=== PATIENT | male | born 1955 | race Caucasian/White ===

== ENCOUNTER 2016-09-06 08:37 | Inpatient (IN) | payer BC, MEDICARE ==
[2016-09-01 21:26] LABS: BASOPHILS 0.8 %; BASOPHILS ABSOLUTE 0.04 10/3/uL (0.0-0.16); EOSINOPHILS 4.7 %; EOSINOPHILS ABSOLUTE 0.25 10/3/uL (0.0-0.53); IMMATURE GRANULOCYTES 0.6 %; IMMATURE GRANULOCYTES ABSOLUTE 0.03 10/3/uL (0.0-0.11); LYMPHOCYTES 40.5 %; LYMPHOCYTES ABSOLUTE 2.14 10/3/uL (0.67-4.30); MEAN CORPUS HGB CONC 32.3 g/dL (32.0-36.0); MEAN CORPUSCULAR HEMOGLOB 30.2 pg (26.0-34.0); MEAN PLATELET VOLUME 9.4 fL (9.2-13.0); MONOCYTES 5.3 %; MONOCYTES ABSOLUTE 0.28 10/3/uL (0.21-1.20); NEUTROPHILS 48.1 %; NEUTROPHILS ABSOLUTE 2.55 10/3/uL (2.02-8.40); PLATELET COUNT 246 10/3/uL (150-400); WHITE BLOOD CELLS 5.3 10/3/uL (4.5-10.5)
[2016-09-01 21:27] LABS: HEMOGLOBIN 14.2 g/dL (13.6-17.8); MANUAL DIFF NO %; MEAN CORPUSCULAR VOLUME 93.6 fL (80-100); RBC DISTRIBUTION WIDTH 13.5 % (12.0-16.0)
[2016-09-01 21:38] LABS: BUN (BLOOD UREA NITROGEN) 9 MG/DL (6-23); CALCIUM, SERUM 8.6 MG/DL (8.5-10.4); CHLORIDE, SERUM 100 MMOL/L (96-112); CO2 (CARBON DIOXIDE) 25 MMOL/L (24-34); CREATININE 0.87 MG/DL (0.70-1.30); GFR AFRICAN AMERICAN 108 ML/MIN (>=60); GFR NON AFRICAN AMERICAN 93 ML/MIN (>=60); GLUCOSE, SERUM 271 MG/DL (60-99); POTASSIUM, SERUM 4.2 MMOL/L (3.5-5.3); SODIUM, SERUM 135 MMOL/L (135-148)
--- NOTE | ~2016-09-06 | OP ---
Record Of Operation [facility] [address] [place]. [address] NAME: BRENTON CASTELLANO ELIZABETH : 55 STATUS : DIS IN PAT#: [id number] AGE: 61 ADM/REG DATE : 09/06/16 MR#: [id number] REPORT SERV DATE: 09/19/16 DICTATED BY: JEREMY ESPINOSA II DATE: 09/19/16 REPORT STATUS : Draft TRANSCRIBED BY: MODL DATE: 09/19/16 DATE OF PROCEDURE: 09/08/2016 PREOPERATIVE DIAGNOSES: 1. Critical ischemia of the right leg with re-occluded right leg bypass. 2. Rest pain, right foot. POSTOPERATIVE DIAGNOSES: 1. Critical ischemia of the right leg with re-occluded right leg bypass. 2. Rest pain, right foot. PROCEDURES: 1. Angiogram of the right leg from a left femoral approach. 2. Percutaneous mechanical thrombectomy of right femoral popliteal artery bypass. 3. Percutaneous angioplasty of right common femoral artery. 4. Percutaneous stent placement of right common femoral artery. 5. Percutaneous stent placement of right popliteal artery. ANESTHESIA: Local with MAC. IV FLUIDS: 600 mL. ESTIMATED BLOOD LOSS: 50 mL. SPECIMENS: Thrombus. BRIEF HISTORY: Mr. Castellano is a pleasant 61-year-old gentleman, who has had a recent thrombectomy of his right leg bypass. He did well initially, but re-occluded the bypass. He was unable to be placed on anticoagulation secondary to history of GI bleed. He is recommended to undergo repeat angiogram and possible intervention. DETAILS OF PROCEDURE: He was taken to the operating room and placed on the operating room table in supine position. Both groins were prepped and draped. I used ultrasound to identify the common femoral on the left side, performed a puncture, and placed a 6-Tajik sheath. We passed a catheter into the right iliac, and a right leg angiogram was performed. This demonstrated a patent right external iliac artery. Just beyond this, the common femoral was completely occluded. The bypass was occluded. There was some reconstitution of the profunda. There was reconstitution of the popliteal below the anastomosis; however, there was what appeared to either be chronic dissection and/or thrombus. The tibials below this appeared to be patent. I was then able to pass a wire through the bypass down into the popliteal artery, and we performed a percutaneous thrombectomy of the bypass. We then performed a percutaneous thrombectomy of the bypass. We passed a wire down into the popliteal artery, then brought the AngioJet catheter into the field, and we passed the AngioJet catheter over the wire through the common femoral artery and into the bypass. We advanced the AngioJet catheter in the thrombectomy mode at approximately 1 cm/second. I passed the entire length of the bypass and down into the popliteal artery. We removed a Record Of Operation [facility] [address] [place]. [address] NAME: BRENTON CASTELLANO ELIZABETH : 55 STATUS : DIS IN PAT#: [id number] AGE: 61 ADM/REG DATE : 09/06/16 MR#: [id number] REPORT SERV DATE: 09/19/16 DICTATED BY: JEREMY ESPINOAS II DATE: 09/19/16 REPORT STATUS : Draft TRANSCRIBED BY: NICK DATE: 09/19/16 large amount of thrombus. It was discarded. Completion of angiogram demonstrated excellent result from thrombectomy within the bypass. There was no further thrombus seen. We had the reestablished flow within the bypass; although the flow was sluggish from the bypass, it was patent and no further thrombus could be seen within the bypass; however, there was a severe stenosis within the common femoral artery. This appeared either to be a dissection. There was a filling defect noted, this could be chronic thrombus. Despite, we then angioplastied this aggressively with a 7 mm balloon with no improvement, I then elected to proceed with stent placement. I advanced an 8 mm x 30 mm stent into the common femoral, and deployed the stent above the bypass. Completion angiogram demonstrated a good placement of the stent just above the profunda with improved flow noted into the bypass. We then focused our attention on the popliteal artery. The bypass again was patent. The distal anastomosis was patent; however, the flow within the bypass was sluggish. We performed an angiogram that demonstrated a diffusely diseased popliteal above the knee. It was difficult to tell if this was chronic thrombus and/or this was a dissection. There did appear to be at least one area of localized dissection. I elected to proceed with primary stent placement of this. I advanced a 6 mm stent into the popliteal artery and deployed the stent without difficulty through the anastomosis and into the bypass. Completion angiogram demonstrated an excellent result now with the excellent flow noted within the bypass through the stent and down into the tibial vessels with rapid flow demonstrated to the foot. At this point, we removed all the wires and catheters, and we closed percutaneously. At the end of the procedure, the patient was stable. He had tolerated it well. He was transported to the recovery room in good condition. CARLIE/NICK Jeremy Espinosa II, M.D. / [id number] CC: Albaro Samuel II
--- NOTE | ~2016-09-06 | CN ---
Consultation Report [address] [address] NAME: BRENTON CASTELLANO ELIZABETH : 55 STATUS : ADM IN PAT#: [id number] AGE: 61 ADM/REG DATE : 09/06/16 MR#: [id number] REPORT SERV DATE: 09/09/16 DICTATED BY: SAMPSON CONNOLLY DATE: 09/09/16 REPORT STATUS : Draft TRANSCRIBED BY: MODL DATE: 09/09/16 GI CONSULT DATE OF CONSULTATION: REASON FOR CONSULTATION: GI consult regarding gastric ulcerations and need for anticoagulation. HISTORY OF PRESENT ILLNESS: This is a 61-year-old man who was admitted and underwent open thrombectomy of right qkfhkir-lw-yyohsgmzp bypass as well as intraluminal angioplasty of right common femoral artery. He has had no recent melena or hematochezia. No diarrhea or constipation. No GERD or dysphagia. No abdominal pain. Overall, he feels well. However, he has a history of gastric ulcers on two separate examinations, in both 2014 and 2015, all biopsies were negative. Previous colonoscopy in 2015 was negative except diverticulosis and tubular adenomas removed. He states he has a history of bleeding from his gastric ulcer while on Coumadin in the past. He states that they are pondering further anticoagulation other than aspirin and Plavix. MEDICAL HISTORY: Remarkable for, 1. Gastric ulcer, antrum, biopsies benign. 2. CAD. 3. Hypertension. 4. Hyperlipidemia. 5. GERD. 6. Peripheral vascular disease, status post thrombectomy and angioplasty of right femoral artery. 7. Degenerative disk disease. 8. Laryngeal tumor. 9. Low back pain. 10.Peripheral neuropathy. 11.CABG. 12.Multiple back surgeries. SOCIAL HISTORY: He is . Has three children. He does not use alcohol or tobacco significantly. FAMILY HISTORY: Negative for GI malignancy. REVIEW OF SYSTEMS: A complete review of systems was obtained and negative except that noted in the history of present illness. PHYSICAL EXAMINATION: VITAL SIGNS: He is currently afebrile. Temperature is 98.4, pulse 95, respirations 16, Consultation Report [address] [address] NAME: BRENTON CASTELLANO ELIZABETH : 55 STATUS : ADM IN PAT#: [id number] AGE: 61 ADM/REG DATE : 09/06/16 MR#: [id number] REPORT SERV DATE: 09/09/16 DICTATED BY: SAMPSON CONNOLLY DATE: 09/09/16 REPORT STATUS : Draft TRANSCRIBED BY: MODL DATE: 09/09/16 blood pressure 114/68. EYES: Sclerae anicteric. NECK: Supple without lymphadenopathy. Pharynx is pink without exudate. LUNGS: Clear to auscultation bilaterally. HEART: Regular rate and rhythm. S1, S2 heard without rubs or gallops. ABDOMEN: Normal bowel sounds. Belly is soft, nontender, nondistended without hepatosplenomegaly. EXTREMITIES: No pedal edema or rash. NEUROLOGIC: Alert and oriented without focal deficit. MUSCULOSKELETAL: Muscle exam is nontender. DATA: White blood cell count 5.4, hematocrit 36, platelets 207. PTT normal, INR 1.2. IMPRESSION: 1. History of gastric ulcer, taking b.i.d. acid suppression. In need of anticoagulation. In need of risk stratification. 2. Peripheral vascular disease, status post recent intervention as above. RECOMMENDATIONS: 1. Continue Protonix twice daily. 2. EGD to follow for risk stratification of further anticoagulation. CC/NICK Sampson Connolly M.D. / [id number] CC: Albaro Samuel II, III, M.D.
--- NOTE | ~2016-09-06 | DS ---
Discharge Summary [facility] [address] [facility] [place]. [address] NAME: BRENTON CASTELLANO ELIZABETH : 55 STATUS : DIS IN PAT#: [id number] AGE: 61 ADM/REG DATE : 09/06/16 MR#: [id number] REPORT SERV DATE: 11/10/16 DICTATED BY: JEREMY ESPINOSA II DATE: 11/10/16 REPORT STATUS : Draft TRANSCRIBED BY: NICK DATE: 11/10/16 ADMISSION DATE: 09/06/2016 DISCHARGE DATE: 09/14/2016 ADMISSION DIAGNOSES: 1. Occluded right leg bypass with rest pain, right foot. 2. Hypertension. 3. Dxa-gztjywn-eqcpvjqzy diabetes. 4. Peripheral vascular disease. 5. Coronary artery disease. 6. Hypertension. DISCHARGE DIAGNOSES: 1. Occluded right leg bypass with rest pain, right foot. 2. Hypertension. 3. Nwh-iscrzrn-fghsniqjs diabetes. 4. Peripheral vascular disease. 5. Coronary artery disease. 6. Hypertension. PROCEDURES WHILE IN THE HOSPITAL: 1. Open thrombectomy of right leg bypass. 2. Percutaneous thrombectomy of right leg bypass with stent placement. 3. Upper endoscopy. ADMISSION MEDICATIONS: Xanax, Norvasc, aspirin, Plavix, Flexeril, lisinopril, metoprolol, Prilosec, metformin, nitroglycerin, and hydrocodone. DISCHARGE MEDICATIONS: Xanax, Norvasc, aspirin, Plavix, Flexeril, lisinopril, metoprolol, Prilosec, metformin, nitroglycerin, and hydrocodone. HOSPITAL COURSE: Mr. Castellano is a 61-year-old gentleman admitted on 09/06, who underwent open thrombectomy of his right leg bypass and angioplasty. He did well, has immediate relief of his rest pain on 09/08/2016 and 09/07/2016 with a palpable pulse. He did, however, later in the day lose his pulse in his right leg and underwent an ultrasound that demonstrated reocclusion of the right leg bypass. On 09/08/2016, he underwent a percutaneous thrombectomy with stent placement. At that time, he was anticoagulated with heparin, and Gastroenterology was consulted. His right leg bypass remained patent. He was placed on proton pump inhibitors and recommended to undergo an EGD, which he underwent and he was found to have a small ulcer, otherwise normal. He was cleared for anticoagulation on 09/12/2016. He did experience possible re-bleeding, was re-evaluated, however, this was felt to be clinically insignificant. On 09/13, he had a patent right leg bypass. His hemoglobin and hematocrit were stable and his symptoms were relieved, and he was discharged home. DISCHARGE INSTRUCTIONS: Discharge home. Activity as tolerated. Diet is diabetic. Discharge Summary [address] [address] NAME: BRENTON CASTELLANO ELIZABETH : 55 STATUS : DIS IN PAT#: [id number] AGE: 61 ADM/REG DATE : 09/06/16 MR#: [id number] REPORT SERV DATE: 11/10/16 DICTATED BY: JEREMY ESPINOSA II DATE: 11/10/16 REPORT STATUS : Draft TRANSCRIBED BY: NICK DATE: 11/10/16 MEDICATIONS: The same preadmission medications. FOLLOWUP: He is to follow up within 10-14 days in my office. CARLIE/NICK Jeremy Espinosa II, M.D. / [id number] CC: Albaro Samuel II, MICHAEL F
--- NOTE | ~2016-09-06 | EGD ---
EGD REPORT [facility] [address] [place] [address] NAME: JUDE CASTELLANO : 55 STATUS : ADM IN PAT#: [id number] AGE: 61 ADM/REG DATE : 09/06/16 MR#: [id number] REPORT SERV DATE: 09/12/16 DICTATED BY: FRANK HURST DATE: 09/12/16 REPORT STATUS : Draft TRANSCRIBED BY: [facility] DATE: 09/12/16 Endoscopy Center Patient Name: Jude Castellano Date of : 1955 Attending MD: FRANK HURST MD Procedure Date No Time: 09/12/2016 Procedure: Upper GI endoscopy Indications: Follow-up of chronic gastric ulcer Medicines: Monitored Anesthesia Care Complications: No immediate complications. Estimated blood loss: Minimal. Procedure: After obtaining informed consent, the endoscope was passed under direct vision. Throughout the procedure, the patient's blood pressure, pulse, and oxygen saturations were monitored continuously. The GIF [id number] was introduced through the mouth, and advanced to the second part of duodenum. The upper GI endoscopy was accomplished without difficulty. The patient tolerated the procedure well. Findings: The examined esophagus was normal. One non-bleeding cratered gastric ulcer with no stigmata of bleeding was found in the gastric antrum. The lesion was 7 mm in largest dimension. Biopsies were taken with a cold forceps for Helicobacter pylori testing. Estimated blood loss was minimal. The examined duodenum was normal. The cardia and gastric fundus were normal on retroflexion. The exam was otherwise without abnormality. Impression: - Small gastric ulcer with clean base. Biopsied. - The examination was otherwise normal. Recommendation: - Return patient to hospital [facility] for ongoing care. - Soft diet today. - Use Prilosec (omeprazole) 40 mg PO BID for 8 weeks. - Await pathology results. Procedure Code(s): --- Professional --- 64281, Esophagogastroduodenoscopy, flexible, transoral; with biopsy, single or multiple Diagnosis Code(s): --- Professional --- K25.9, Gastric ulcer, unspecified as acute or chronic, without hemorrhage or perforation EGD REPORT [facility] [address] [place], [place] [address]. [address] NAME: JUDE CASTELLANO ELIZABETH : 55 STATUS : ADM [facility]#: [id number] AGE: 61 ADM/REG DATE : 09/06/16 MR#: [id number] REPORT SERV DATE: 09/12/16 DICTATED BY: FRANK HURST DATE: 09/12/16 REPORT STATUS : Draft TRANSCRIBED BY: [facility] DATE: 09/12/16 K25.7, Chronic gastric ulcer without hemorrhage or perforation CPT copyright 2013 [employer]. All rights reserved. The codes documented in this report are preliminary and upon carpentry professional review may be revised to meet current compliance requirements. Frank Hurst MD FRANK HURST MD 09/12/2016 7:50 AM This report has been signed electronically. Number of Addenda: 0 Note Initiated On: 09/12/2016 7:22 AM Scope Withdrawal Time 0 hours 0 minutes 0 seconds [address] [place] [address]
--- NOTE | ~2016-09-06 | HP ---
History And Physical [facility] [address] [place]. [address] NAME: BRENTON CASTELLANO ELIZABETH : 55 STATUS : DIS IN PAT#: [id number] AGE: 61 ADM/REG DATE : 09/06/16 MR#: [id number] REPORT SERV DATE: 11/10/16 DICTATED BY: JEREMY ESPINOSA II DATE: 11/10/16 REPORT STATUS : Draft TRANSCRIBED BY: MODSylwia DATE: 11/10/16 DATE OF ADMISSION: 09/06/2016 CHIEF COMPLAINT: Rest pain, right foot. HISTORY OF PRESENT ILLNESS: Mr. Castellano is a 61-year-old gentleman, who is a longstanding patient of mine, who had a previous right leg bypass. He was recently complained of recurrent pain in the right leg and underwent ultrasound demonstrating occluded bypass. He still is able to move the right foot, however, he has mild decreased sensation. PAST MEDICAL HISTORY: Consistent with peripheral vascular disease, hypertension, coronary artery disease, gastroesophageal reflux disease with ulceration, degenerative disk disease, and chronic back pain. PAST SURGICAL HISTORY: He has had previous stents as well as coronary stents as well as coronary artery bypass, and previous femoral popliteal bypass. He has had multiple spinal surgeries. SOCIAL HISTORY: He has had no current tobacco use, no alcohol use. He is and lives at home with his family. FAMILY HISTORY: Positive for cardiovascular disease. MEDICATIONS: Please see list in MAR which was reviewed. ALLERGIES: NONE. REVIEW OF SYSTEMS: He reports claudication symptoms. He also reports rest pain, right foot. No current chest pain. PHYSICAL EXAMINATION: GENERAL: Awake and alert. No acute distress. VITAL SIGNS: He weighs 196 pounds, blood pressure 140/80, pulse 82, respiratory rate 16, and temperature 97.8. HEENT: Airways are clear. Mucous membranes are moist. Atraumatic and normocephalic. NECK: No pulsatile mass. No JVD. CHEST: Clear. Breath sounds equal bilaterally. CARDIOVASCULAR: Regular rate and rhythm. No murmur. ABDOMEN: Soft and nontender. No pulsatile mass. BACK: Symmetric. No focal tenderness. EXTREMITIES: Upper extremities have palpable pulses, equal direct customer service representative, full range of motion. Lower extremities, palpable femoral pulses. No pedal pulses on the right side. Dependent rubor is noted. Palpable pulse was noted in the left leg. No edema. NEUROLOGIC: Nonfocal. History And Physical [facility] [address] [place]. [address] NAME: BRENTON CASTELLANO ELIZABETH : 55 STATUS : DIS IN PAT#: [id number] AGE: 61 ADM/REG DATE : 09/06/16 MR#: [id number] REPORT SERV DATE: 11/10/16 DICTATED BY: JEREMY ESPINOSA II DATE: 11/10/16 REPORT STATUS : Draft TRANSCRIBED BY: MODL DATE: 11/10/16 DIAGNOSTIC DATA: An ultrasound was performed demonstrating occluded right leg bypass. ASSESSMENT AND PLAN: A 61-year-old gentleman with a history of previous right leg bypass who presents with critical ischemia. He is recommended to undergo angiogram and possible thrombectomy, either percutaneous or open, who need to be evaluated potentially by GI for recommendations regarding postoperative anticoagulation. CARLIE/NICK Jeremy Espinosa II, M.D. / [id number] CC: Albaro Samuel II, MICHAEL F
--- NOTE | ~2016-09-06 | OP ---
Record Of Operation [facility] [address] [place]. [address] NAME: BRENTON HINOJOSA ELIZABETH : 55 STATUS : ADM IN PAT#: [id number] AGE: 61 ADM/REG DATE : 09/06/16 MR#: [id number] REPORT SERV DATE: 09/06/16 DICTATED BY: JEREMY ESPINOSA II DATE: 09/06/16 REPORT STATUS : Draft TRANSCRIBED BY: MODL DATE: 09/06/16 DATE OF PROCEDURE: 09/06/2016 SURGEON: Jeremy Espinosa M.D. OYSTER BED WORKER: Katherine. PREOPERATIVE DIAGNOSES: 1. Peripheral vascular disease. 2. Occluded right leg bypass. 3. Disabling claudication, right leg. POSTOPERATIVE DIAGNOSES: 1. Peripheral vascular disease. 2. Occluded right leg bypass. 3. Disabling claudication, right leg. PROCEDURES: 1. Open Jude thrombectomy of right femoral to popliteal bypass. 2. Right leg angiogram. 3. Intraluminal angioplasty of right common femoral artery. ANESTHESIA: General. IV FLUIDS: 1000 mL. ESTIMATED BLOOD LOSS: 300 mL. CONTRAST: 35 mL. SPECIMENS: Thrombus. BRIEF HISTORY: Mr. Hinojosa is a 61-year-old gentleman who presents with an occluded right leg bypass. He has a disabling claudication and significant distal ischemia. DESCRIPTION OF PROCEDURE: The patient was taken to the operating room and placed supine on the table. General anesthesia was achieved. The left groin and the right leg were prepped and draped. I used ultrasound to identify the bypass in the proximal thigh. I made an incision directly over the bypass. I then mobilized proximally and distally and placed vessel loops. Transverse graftotomy was performed, and we encountered thrombus. We passed a Jude catheter through the proximal anastomosis and removed a large amount of thrombus. Completion angiogram demonstrates no further thrombus; however, there was a severe stenosis involving the proximal anastomosis and common femoral artery. We carefully passed a wire through this and performed angioplasty with a 6 mm balloon. Completion angiogram demonstrates an excellent result with no further stenosis seen. There was no further thrombus and excellent flow was noted into the bypass. The right iliac system was also Record Of Operation [facility] [address] [place]. [address] NAME: BRENTON HINOJOSA ELIZABETH : 55 STATUS : ADM IN PAT#: [id number] AGE: 61 ADM/REG DATE : 09/06/16 MR#: [id number] REPORT SERV DATE: 09/06/16 DICTATED BY: JEREMY ESPINOSA II DATE: 09/06/16 REPORT STATUS : Draft TRANSCRIBED BY: NICK DATE: 09/06/16 widely patent with no significant stenosis seen. At this point, we passed a Jude catheter through the distal anastomosis and performed thrombectomy removing a large amount of thrombus. We had good back bleeding. We performed an angiogram that demonstrated persistent residual thrombus present. We then reinserted the Jude and thrombectomized this and performed an angiogram that demonstrated no further thrombus present and no significant stenosis noted with good flow into the tibial vessels. We then flushed antegrade and retrograde and then closed the bypass using a running 5-0 Prolene suture. We released the clamps and the patient regained a pulse in his foot. We thoroughly irrigated and closed with 2-0 and 3-0 Vicryl and closed the skin with Monocryl. At the end of the procedure, the patient was stable. He tolerated it well. CARLIE/NICK Jeremy Espinosa II, M.D. / [id number] CC: Jeremy Espinosa II, M.D.
[~2016-09-06 08:37] MED LIST: ASA5GR PO; ASAB PO; B-C POWDER PO; CARD90 PO; COREG6 PO; DSS PO; ENDOCET1 TA3 PO; FLEX PO; FOLIC PO; GLUCPH PO; HALF81 PO; JANTOVEN2 MG PO; K500 PO; LIPITOR40 PO; LOP25 PO; LORTAB 5 PO; LORTAB10 PO; MAX25 PO; MONODOX100 MG PO; NICODERM C14 MG/24 H TOP; NITROQUICK0.4 MG SL; NITROSTAT0.4 MG SL; NORCO1 TAB PO; NORV10 PO; PERCOCET1 TA4 PO; PERCOCET1 TA5 PO; PLAVIX PO; PRILO PO; PRILOSEC40 MG PO; PRIN20 PO; PRIN5 PO; STOOL SOFTEN240 MG PO; SUCR PO; TOPXL25 PO; TORATAB PO; VIT C; VITC500 PO; XANAX1 MG PO; ZESTRIL20 MG PO; [UNRECOGNIZED DRUG - OTHER] PO
[2016-09-08 21:54] LABS: BASOPHILS 1.1 %; BASOPHILS ABSOLUTE 0.06 10/3/uL (0.0-0.16); EOSINOPHILS 4.6 %; EOSINOPHILS ABSOLUTE 0.25 10/3/uL (0.0-0.53); HEMOGLOBIN 11.9 g/dL (13.6-17.8); IMMATURE GRANULOCYTES 0.2 %; IMMATURE GRANULOCYTES ABSOLUTE 0.01 10/3/uL (0.0-0.11); LYMPHOCYTES 38.3 %; LYMPHOCYTES ABSOLUTE 2.06 10/3/uL (0.67-4.30); MEAN CORPUS HGB CONC 33.2 g/dL (32.0-36.0); MEAN CORPUSCULAR HEMOGLOB 30.4 pg (26.0-34.0); MEAN CORPUSCULAR VOLUME 91.6 fL (80-100); MEAN PLATELET VOLUME 9.5 fL (9.2-13.0); MONOCYTES 6.1 %; MONOCYTES ABSOLUTE 0.33 10/3/uL (0.21-1.20); NEUTROPHILS 49.7 %; NEUTROPHILS ABSOLUTE 2.67 10/3/uL (2.02-8.40); PLATELET COUNT 207 10/3/uL (150-400); RBC DISTRIBUTION WIDTH 13.1 % (12.0-16.0); RED CELL COUNT 3.91 10/6/uL (4.7-6.1); WHITE BLOOD CELLS 5.4 10/3/uL (4.5-10.5)
[2016-09-08 21:56] LABS: HEMATOCRIT 35.8 % (40.0-51.0); MANUAL DIFF NO %
[2016-09-08 22:05] LABS: INTERNATIONAL NORMAL RATI 1.2 UNITS (-); PROTIME (NOT ORD) 15.1 SEC (12.0-14.5)
[2016-09-08 22:12] LABS: PARTIAL THROMBO TIME 145.7 SEC (22.5-37.2)
[2016-09-08 23:15] LABS: HEMATOCRIT 34.4 % (40.0-51.0); HEMOGLOBIN 11.4 g/dL (13.6-17.8)
[2016-09-09 06:45] LABS: HEMOGLOBIN 11.7 g/dL (13.6-17.8)
[2016-09-09 14:20] LABS: HEMATOCRIT 34.5 % (40.0-51.0); HEMOGLOBIN 11.2 g/dL (13.6-17.8)
[2016-09-09 14:30] LABS: PARTIAL THROMBO TIME 33.3 SEC (22.5-37.2)
[2016-09-10 04:46] LABS: BASOPHILS ABSOLUTE 0.05 10/3/uL (0.0-0.16); EOSINOPHILS 5.7 %; EOSINOPHILS ABSOLUTE 0.28 10/3/uL (0.0-0.53); HEMATOCRIT 31.4 % (40.0-51.0); HEMOGLOBIN 10.3 g/dL (13.6-17.8); IMMATURE GRANULOCYTES 0.4 %; IMMATURE GRANULOCYTES ABSOLUTE 0.02 10/3/uL (0.0-0.11); LYMPHOCYTES 40.7 %; LYMPHOCYTES ABSOLUTE 1.99 10/3/uL (0.67-4.30); MEAN CORPUS HGB CONC 32.8 g/dL (32.0-36.0); MEAN CORPUSCULAR HEMOGLOB 30.4 pg (26.0-34.0); MEAN CORPUSCULAR VOLUME 92.6 fL (80-100); MEAN PLATELET VOLUME 9.4 fL (9.2-13.0); MONOCYTES ABSOLUTE 0.49 10/3/uL (0.21-1.20); NEUTROPHILS 42.2 %; NEUTROPHILS ABSOLUTE 2.06 10/3/uL (2.02-8.40); PLATELET COUNT 191 10/3/uL (150-400); RBC DISTRIBUTION WIDTH 13.4 % (12.0-16.0); RED CELL COUNT 3.39 10/6/uL (4.7-6.1); WHITE BLOOD CELLS 4.9 10/3/uL (4.5-10.5)
[2016-09-10 04:47] LABS: MANUAL DIFF NO %
[2016-09-11 03:17] LABS: BASOPHILS 0.8 %; BASOPHILS ABSOLUTE 0.04 10/3/uL (0.0-0.16); EOSINOPHILS 6.7 %; EOSINOPHILS ABSOLUTE 0.34 10/3/uL (0.0-0.53); HEMATOCRIT 32.3 % (40.0-51.0); HEMOGLOBIN 10.6 g/dL (13.6-17.8); IMMATURE GRANULOCYTES 0.6 %; IMMATURE GRANULOCYTES ABSOLUTE 0.03 10/3/uL (0.0-0.11); LYMPHOCYTES ABSOLUTE 1.97 10/3/uL (0.67-4.30); MANUAL DIFF NO %; MEAN CORPUS HGB CONC 32.8 g/dL (32.0-36.0); MEAN CORPUSCULAR HEMOGLOB 30.4 pg (26.0-34.0); MEAN CORPUSCULAR VOLUME 92.6 fL (80-100); MEAN PLATELET VOLUME 9.3 fL (9.2-13.0); MONOCYTES 8.1 %; MONOCYTES ABSOLUTE 0.41 10/3/uL (0.21-1.20); NEUTROPHILS 44.8 %; NEUTROPHILS ABSOLUTE 2.26 10/3/uL (2.02-8.40); PLATELET COUNT 220 10/3/uL (150-400); RBC DISTRIBUTION WIDTH 13.1 % (12.0-16.0); RED CELL COUNT 3.49 10/6/uL (4.7-6.1); WHITE BLOOD CELLS 5.1 10/3/uL (4.5-10.5)
[2016-09-12 14:37] LABS: HEMATOCRIT 31.4 % (40.0-51.0); HEMOGLOBIN 10.4 g/dL (13.6-17.8)
[2016-09-12 20:53] LABS: HEMATOCRIT 32.2 % (40.0-51.0); HEMOGLOBIN 10.7 g/dL (13.6-17.8)
[2016-09-13 02:10] LABS: BASOPHILS 0.9 %; BASOPHILS ABSOLUTE 0.04 10/3/uL (0.0-0.16); EOSINOPHILS 7.5 %; EOSINOPHILS ABSOLUTE 0.35 10/3/uL (0.0-0.53); HEMATOCRIT 32.2 % (40.0-51.0); HEMOGLOBIN 10.6 g/dL (13.6-17.8); IMMATURE GRANULOCYTES 0.4 %; IMMATURE GRANULOCYTES ABSOLUTE 0.02 10/3/uL (0.0-0.11); LYMPHOCYTES 33.6 %; LYMPHOCYTES ABSOLUTE 1.56 10/3/uL (0.67-4.30); MEAN CORPUS HGB CONC 32.9 g/dL (32.0-36.0); MEAN CORPUSCULAR HEMOGLOB 30.5 pg (26.0-34.0); MEAN CORPUSCULAR VOLUME 92.8 fL (80-100); MEAN PLATELET VOLUME 9.1 fL (9.2-13.0); MONOCYTES 8.8 %; MONOCYTES ABSOLUTE 0.41 10/3/uL (0.21-1.20); NEUTROPHILS 48.8 %; NEUTROPHILS ABSOLUTE 2.26 10/3/uL (2.02-8.40); PLATELET COUNT 235 10/3/uL (150-400); RBC DISTRIBUTION WIDTH 13.2 % (12.0-16.0); RED CELL COUNT 3.47 10/6/uL (4.7-6.1); WHITE BLOOD CELLS 4.6 10/3/uL (4.5-10.5)
[2016-09-13 02:11] LABS: MANUAL DIFF NO %
[2016-09-13 02:17] LABS: PARTIAL THROMBO TIME 29.2 SEC (22.5-37.2)
[2016-09-13 02:28] LABS: BUN (BLOOD UREA NITROGEN) 7 MG/DL (6-23); CALCIUM, SERUM 9.1 MG/DL (8.5-10.4); CHLORIDE, SERUM 105 MMOL/L (96-112); CREATININE 0.84 MG/DL (0.70-1.30); GFR AFRICAN AMERICAN 110 ML/MIN (>=60); GFR NON AFRICAN AMERICAN 95 ML/MIN (>=60); POTASSIUM, SERUM 4.1 MMOL/L (3.5-5.3); SODIUM, SERUM 136 MMOL/L (135-148)
[2016-09-13 02:31] LABS: CO2 (CARBON DIOXIDE) 30 MMOL/L (24-34); GLUCOSE, SERUM 161 MG/DL (60-99)
[2016-09-13 08:32] LABS: HEMATOCRIT 32.3 % (40.0-51.0); HEMOGLOBIN 10.6 g/dL (13.6-17.8)
[2016-09-13 22:48] LABS: HEMATOCRIT 31.9 % (40.0-51.0); HEMOGLOBIN 10.6 g/dL (13.6-17.8)
[2016-09-13 22:52] LABS: PARTIAL THROMBO TIME 61.2 SEC (22.5-37.2)
[2016-09-14 06:40] LABS: BASOPHILS 0.6 %; BASOPHILS ABSOLUTE 0.03 10/3/uL (0.0-0.16); EOSINOPHILS 7.2 %; EOSINOPHILS ABSOLUTE 0.35 10/3/uL (0.0-0.53); HEMATOCRIT 32.1 % (40.0-51.0); HEMOGLOBIN 10.7 g/dL (13.6-17.8); IMMATURE GRANULOCYTES 0.4 %; IMMATURE GRANULOCYTES ABSOLUTE 0.02 10/3/uL (0.0-0.11); LYMPHOCYTES ABSOLUTE 2.13 10/3/uL (0.67-4.30); MANUAL DIFF NO %; MEAN CORPUS HGB CONC 33.3 g/dL (32.0-36.0); MEAN CORPUSCULAR HEMOGLOB 30.7 pg (26.0-34.0); MEAN PLATELET VOLUME 9.2 fL (9.2-13.0); MONOCYTES 7.2 %; MONOCYTES ABSOLUTE 0.35 10/3/uL (0.21-1.20); NEUTROPHILS 40.6 %; NEUTROPHILS ABSOLUTE 1.96 10/3/uL (2.02-8.40); PLATELET COUNT 225 10/3/uL (150-400); RBC DISTRIBUTION WIDTH 13.2 % (12.0-16.0); RED CELL COUNT 3.49 10/6/uL (4.7-6.1); WHITE BLOOD CELLS 4.8 10/3/uL (4.5-10.5)
[2016-09-14 06:54] LABS: BUN (BLOOD UREA NITROGEN) 7 MG/DL (6-23); CALCIUM, SERUM 8.5 MG/DL (8.5-10.4); CHLORIDE, SERUM 105 MMOL/L (96-112); CO2 (CARBON DIOXIDE) 27 MMOL/L (24-34); CREATININE 0.79 MG/DL (0.70-1.30); GFR AFRICAN AMERICAN 112 ML/MIN (>=60); GFR NON AFRICAN AMERICAN 97 ML/MIN (>=60); GLUCOSE, SERUM 159 MG/DL (60-99); POTASSIUM, SERUM 3.7 MMOL/L (3.5-5.3); SODIUM, SERUM 135 MMOL/L (135-148)
[2016-09-14 07:03] LABS: PLATELET ESTIMATE ADQ (ADEQUATE); RBC MORPHOLOGY NORM (NORMAL)
[2016-09-14 08:11] LABS: HEMATOCRIT 32.1 % (40.0-51.0); HEMOGLOBIN 10.6 g/dL (13.6-17.8)
[2016-09-14] MEDS ORDERED: ELIQUIS 5 MG TAB5 MG PO (16:00)
[2016-12-26] MEDS ORDERED: ELIQUIS 5 MG TAB5 MG PO (16:51)
[2016-12-26] MEDS ORDERED: PRILOSEC40 MG PO (16:51)
[2016-12-26] MEDS ORDERED: PRIN20 PO (16:51)
[2016-12-26] MEDS ORDERED: TOPXL25 PO (16:51)
[2016-12-26] MEDS ORDERED: GLUCOPHAGE1000 MG PO (16:52)
[2016-12-26] MEDS ORDERED: NORCO1 TAB PO (16:52)
[2016-12-26] MEDS ORDERED: XANAX1 MG PO (16:53)
[2016-12-26] MEDS ORDERED: NITROSTAT0.4 MG SL (16:53)
[2016-12-26] MEDS ORDERED: NORV10 PO (16:54)
[2016-12-26] MEDS ORDERED: ASA5GR PO (16:55)
[2017-01-08] MEDS ORDERED: PERCOCET 10/3251 TAB PO (13:57)
== END 2016-09-14 17:32 | disposition home or self-care (01) | DRG 253 ==
LOC: SDC 08:37 → SDC/OF 14:50 → 2SO 15:29
PROVIDERS: Internal Medicine Gastroenterology; Nurse Practitioner Family; Surgery
PROC: 04CK0ZZ Extirpation of Matter from Right Femoral Artery, Open Approach (ICD-10-PCS; principal; 2016-09-06 10:15)
PROC: 04CM0ZZ Extirpation of Matter from Right Popliteal Artery, Open Approach (ICD-10-PCS; 2016-09-06 10:15)
PROC: 047K3ZZ Dilation of Right Femoral Artery, Percutaneous Approach (ICD-10-PCS; 2016-09-06 10:15)
PROC: 0DB68ZX Excision of Stomach, Via Natural or Artificial Opening Endoscopic, Diagnostic (ICD-10-PCS; 2016-09-12)
DX: T82.868A Thrombosis due to vascular prosthetic devices, implants and grafts, initial encounter (principal); K92.1 Melena; G62.9 Polyneuropathy, unspecified; K25.7 Chronic gastric ulcer without hemorrhage or perforation; I70.213 Atherosclerosis of native arteries of extremities with intermittent claudication, bilateral legs; I25.10 Atherosclerotic heart disease of native coronary artery without angina pectoris; I10 Essential (primary) hypertension; E78.5 Hyperlipidemia, unspecified; K21.9 Gastro-esophageal reflux disease without esophagitis; M54.5 Low back pain; K59.00 Constipation, unspecified; Z95.1 Presence of aortocoronary bypass graft; Z98.890 Other specified postprocedural states; Z91.030 Bee allergy status
CPT/HCPCS: 35875; 36415; 37184; 37224; 37226; 71020-PO; 75710; 80048; 82962; 85014; 85018; 85025; 85610; 85730; 88304; 88305; 88342; 93005; 93926; A9270-GY; C1725; C1757; C1760; C1769; C1876; C1894; J0330; J0690; J1170; J2250; J2405; J2997; J3010; Q9967